=== PATIENT | male | born 1945 | race Caucasian/White ===

== ENCOUNTER → 2016-12-21 | Outpatient (CLI) | payer MEDICARE | END | disposition home or self-care (01) | LOC: GMAJ 11:44 | PROVIDERS: ATTEND Family Medicine | DX: Z79.899 Other long term (current) drug therapy (principal); M10.9 Gout, unspecified ==

== ENCOUNTER → 2017-03-18 | Outpatient (CLI) | payer MEDICARE ==
--- NOTE | 2017-03-20 11:56 | MRI ---
Study: MRI of the Right Shoulder. Indication: PAIN IN RIGHT ARM Technique: Multiplanar, multi sequence MRI of the right shoulder was obtained without intravenous contrast. Comparison: None Findings: External skin marker placed at the posterior margin of the shoulder. 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 No aggressive features identified. 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 Mild type II acromion with mild lateral downsloping. High grade supraspinatus and infraspinatus tendinosis with ill-defined high grade interstitial tearing suspected at the critical zone of the conjoined tendon which is filled with granulation tissue. Areas of bursal and articular surface extension likely present. The involved area measures 11 mm transverse by 18 mm AP. Less pronounced similar appearing changes noted throughout the remainder of both tendons. No full-thickness tear or tendon retraction. Subscapularis tendinosis with high-grade articular tearing superior two thirds tendon insertion. Teres minor tendon intact. Rotator cuff musculature normal without atrophy, fatty infiltration, or intramuscular edema. Intracapsular long head biceps tendinosis. Circumferential labral tearing and truncation. Mild glenohumeral joint osteoarthritis. No acute fracture. Impression: High-grade supraspinatus and infraspinatus tendinosis with ill-defined interstitial tearing throughout both tendons. Changes most pronounced at the critical zone conjoined tendon with high-grade changes as above. Subscapularis tendinosis with high-grade articular tearing superior two thirds. Intracapsular long head biceps tendinosis. Circumferential labral tearing and truncation. Mild glenohumeral joint osteoarthritis. 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 Electronically signed by: Biju Nunez MD 03/20/2017 11:54 AM CDT
== END | disposition home or self-care (01) ==
LOC: MRI 07:11
PROVIDERS: ATTEND Nurse Practitioner Family
DX: M79.601 Pain in right arm (principal)

== ENCOUNTER → 2017-12-02 | Outpatient (CLI) | payer MEDICARE ==
--- NOTE | 2017-12-06 07:34 | RAD ---
EXAM DESCRIPTION: Shoulder,Right 2 or More Views CLINICAL HISTORY: PAIN IN RIGHT SHOULDER COMPARISON: None FINDINGS: 4 views of the right shoulder. No acute fracture, dislocation or aggressive bone lesion is present. Bone mineralization appears normal. No erosions are present. Moderate acromioclavicular joint osteoarthritis is present. Calcific density seen within the location of the expected supraspinatus and infraspinatus indicating calcific tendinosis. IMPRESSION: Rotator cuff calcific tendinosis. Moderate AC joint arthrosis. Electronically signed by: Bk Kelly MD 12/06/2017 7:32 AM [facility]
== END ==
LOC: RAD 07:40
PROVIDERS: ATTEND Orthopaedic Surgery
DX: M75.31 Calcific tendinitis of right shoulder (principal); M19.011 Primary osteoarthritis, right shoulder